=== PATIENT | female | born 1985 | race Caucasian/White ===

== ENCOUNTER 2017-10-18 15:16 | Inpatient (IN) | payer BC ==
[2017-10-18] MEDS ORDERED: Water For Irrigation,Sterile 1,000 ML Container IRR PRN (15:33)
[2017-10-18] MEDS ORDERED: Sodium Chloride 0.9% 2.5 ML Syringe FLUSH PRN (15:33)
[2017-10-18] MEDS ORDERED: Butorphanol 1 MG/ML SDV IVPUSH PRN (15:33)
[2017-10-18] MEDS ORDERED: Sodium Chloride 0.9% 10 ML Syringe FLUSH PRN (15:33)
[2017-10-18] MEDS ORDERED: Methylergonovine 0.2 MG/1 ML Amp IM PRN (15:33)
[2017-10-18] MEDS ORDERED: Nalbuphine 10 MG/1 ML Vial IVPUSH PRN (15:33)
[2017-10-18] MEDS ORDERED: Lidocaine 1% 50 ML MDV INJECT PRN (15:33)
[2017-10-18] MEDS ORDERED: Misoprostol 200 MCG Tab PO PRN (15:33)
[2017-10-18] MEDS ORDERED: Terbutaline 1 MG/ML SDV SUBCUT PRN (15:33)
[2017-10-18] MEDS ORDERED: Carboprost Tromethamine 250 MCG/1 ML Amp IM PRN (15:33)
[2017-10-18] MEDS ORDERED: Oxytocin/0.9 % Sodium Chloride 30 UNIT/500 ML BAG IV SCH ×2 (15:45)
[2017-10-18] MEDS ORDERED: Misoprostol 25 MCG (1/4 of 100 MCG) Tab VAG SCH (16:00)
[2017-10-18] MEDS: Lactated Ringers 1,000 ML IV SCH (16:38)
[2017-10-18] MEDS ORDERED: Misoprostol 25 MCG (1/4 of 100 MCG) Tab VAG PRN (22:00)
[2017-10-19] MEDS: Lactated Ringers 1,000 ML IV SCH ×5 (08:35→16:27)
--- NOTE | 2017-10-19 13:21 | PCM.PREANE ---
Preanesthetic Assessment - Anesthesia/Transfusion/Family Hx Anesthesia History: Prior Anesthesia Without Reaction Transfusion History: No Prior Transfusion(s) - Review of Systems General: No Symptoms Pulmonary: No Symptoms Cardiovascular: No Symptoms Gastrointestinal: No Symptoms Neurological: No Symptoms Other: Reports: None - Physical Assessment Height: 5 ft 2 in Weight: 92.533 kg ASA Class: 2 Mental Status: Alert & Oriented x3 Airway Class: Mallampati = 2 Dentition: Reports: Normal Dentition Thyro-Mental Finger Breadths: 3 Mouth Opening Finger Breadths: 3 ROM/Head Extension: Full Lungs: Clear to Auscultation, Normal Respiratory Effort Cardiovascular: Regular Rate, Regular Rhythm - Lab Values: Laboratory Last Values WBC 9.40 K/uL (4.0-11.0) 10/18/17 16:14 RBC 3.91 M/uL (4.30-5.90) L 10/18/17 16:14 Hgb 11.5 g/dL (12.0-16.0) L 10/18/17 16:14 Hct 34.6 % (36.0-46.0) L 10/18/17 16:14 MCV 88.5 fL (80.0-98.0) 10/18/17 16:14 MCH 29.4 pg (27.0-32.0) 10/18/17 16:14 MCHC 33.2 g/dL (31.0-37.0) 10/18/17 16:14 RDW Std Deviation 46.7 fl (28.0-62.0) 10/18/17 16:14 RDW Coeff of Vamsi 15 % (11.0-15.0) 10/18/17 16:14 Plt Count 176 K/uL (150-400) 10/18/17 16:14 MPV 11.20 fL (7.40-12.00) 10/18/17 16:14 Nucleated RBC % 0.0 /100WBC 10/18/17 16:14 Nucleated RBCs # 0 K/uL 10/18/17 16:14 Blood Type O POSITIVE 10/18/17 16:14 Antibody Screen NEGATIVE 10/18/17 16:14 - Allergies Allergies/Adverse Reactions: Allergies Allergy/AdvReac Type Severity Reaction Status Date / Time sulfamethoxazole Allergy Rash Verified 10/18/17 15:32 [From Bactrim] trimethoprim [From Bactrim] Allergy Rash Verified 10/18/17 15:32 - Acknowledgements Anesthesia Type Planned: Epidural Pt an Appropriate Candidate for the Planned Anesthesia: Yes Alternatives and Risks of Anesthesia Discussed w Pt/Guardian: Yes Pt/Guardian Understands and Agrees with Anesthesia Plan: Yes PreAnesthesia Questionnaire HEENT History: Reports: None Cardiovascular History: Reports: None Respiratory History: Reports: None Gastrointestinal History: Reports: GERD Genitourinary History: Reports: None PRIVACY DIRECTOR History: Reports: : 1 Para: 0 LMP (Approximate): Musculoskeletal History: Reports: Other (See Below) Other Musculoskeletal History: Hx of cleidocranial dysostosis Neurological History: Reports: None Psychiatric History: Reports: None Endocrine/Metabolic History: Reports: Obesity/BMI 30+ Hematologic History: Reports: None Immunologic History: Reports: None Oncologic (Cancer) History: Reports: None Dermatologic History: Reports: None - Past Surgical History Head Surgeries/Procedures: Reports: None HEENT Surgical History: Reports: Adenoidectomy, Oral Surgery, Tonsillectomy GI Surgical History: Reports: Appendectomy Female Surgical History: Reports: LEEP - SUBSTANCE USE Smoking Status *Q: Never Smoker Recreational Drug Use History: No - HOME MEDS Home Medications: Home Meds PNV95/Ferrous Fumarate/FA [ Tablet] 10/18/17 [History] - CURRENT (IN HOUSE) MEDS Current Meds: Current Medications Butorphanol Tartrate (Stadol) 1 mg IVPUSH Q1H PRN PRN Reason: Pain Carboprost Tromethamine (Hemabate Ds) 250 mcg IM ASDIRECTED PRN PRN Reason: Post Hemorrhage Lactated Ringer's (Ringers, Lactated) 1,000 mls @ 150 mls/hr IV ASDIRECTED MAG[facility]IE Last Admin: 10/19/17 13:17 Dose: 999 mls/hr Oxytocin/Sodium Chloride (Oxytocin 30 Unit/500 Ml-Ns) 30 unit in 500 mls @ 999 mls/hr IV TITRATE [facility] Oxytocin/Sodium Chloride (Oxytocin 30 Unit/500 Ml-Ns) 30 unit in 500 mls @ 2 mls/hr IV TITRATE [facility]; 2 MUNITS/MIN PRN Reason: Protocol Last Titration: 10/19/17 12:21 Dose: 14 munits/min, 14 mls/hr Lidocaine HCl (Xylocaine 1%) 50 ml INJECT .ONCE PRN PRN Reason: Laceration repair Methylergonovine Maleate (Methergine) 0.2 mg IM ASDIRECTED PRN PRN Reason: Post Hemorrhage Misoprostol (Cytotec) 200 mcg PO .ONCE PRN PRN Reason: Post Hemorrhage Misoprostol (Cytotec) 25 mcg VAG .ONCE [facility] Last Admin: 10/18/17 16:38 Dose: 25 mcg Misoprostol (Cytotec) 25 mcg VAG Q6H PRN PRN Reason: Cervical Ripening Nalbuphine HCl (Nubain) 10 mg IVPUSH Q1H PRN PRN Reason: Pain (severe 7-10) Sodium Chloride (Saline Flush) 10 ml FLUSH ASDIRECTED PRN PRN Reason: Keep Vein Open Sodium Chloride (Saline Flush) 2.5 ml FLUSH ASDIRECTED PRN PRN Reason: Keep Vein Open Sterile Water (Sterile Water For Irrigation) 1,000 ml IRR ASDIRECTED PRN PRN Reason: delivery Terbutaline Sulfate (Brethine) 0.25 mg SUBCUT ASDIRECTED PRN PRN Reason: Tacysystole
[2017-10-19] MEDS ORDERED: fentaNYL 100 MCG/2 ML SDV ONE (13:26)
[2017-10-19] MEDS ORDERED: Ropivacaine HCl/PF 100 ML ONE (13:26)
[2017-10-19] MEDS ORDERED: Lidocaine 2% 5 ML SDV ONE (13:42)
[2017-10-19] MEDS ORDERED: ceFAZolin 2 GM in Premix Bag 1 BAG IV ONE (22:00)
[2017-10-19] MEDS ORDERED: Lactated Ringers 1,000 ML IV SCH ×2 (22:00→23:15)
[2017-10-19] MEDS ORDERED: Citric Acid/Sodium Citrate Solution 30 ML Cup PO SCH (22:00)
[2017-10-19] MEDS ORDERED: Oxytocin/0.9 % Sodium Chloride 30 UNIT/500 ML BAG IV SCH (22:00)
[2017-10-19] MEDS ORDERED: Sodium Chloride 0.9% 2.5 ML Syringe FLUSH PRN (22:00)
[2017-10-19] MEDS ORDERED: Sodium Chloride 0.9% 10 ML Syringe FLUSH PRN (22:00)
[2017-10-19] MEDS ORDERED: Bupivacaine 0.5% 10 ML SDV ONE (22:05)
[2017-10-19] MEDS ORDERED: Citric Acid/Sodium Citrate Solution 30 ML Cup ONE (22:07)
[2017-10-19] MEDS ORDERED: Oxytocin 10 Units/1 ML SDV ONE (22:21)
[2017-10-19] MEDS ORDERED: Ondansetron 4 MG/2 ML SDV ONE (22:21)
[2017-10-19] MEDS ORDERED: ceFAZolin 1 GM Vial ONE (22:22)
[2017-10-19] MEDS ORDERED: Sodium Chloride 0.9% 20 ML ONE (22:22)
[2017-10-19] MEDS ORDERED: fentaNYL 100 MCG/2 ML SDV IVPUSH PRN (22:27)
[2017-10-19] MEDS ORDERED: Nalbuphine 10 MG/1 ML Vial IVPUSH PRN (22:27)
[2017-10-19] MEDS ORDERED: Phenylephrine/Normal Saline 100 MCG/ML 10 ML Syringe ONE (22:51)
[2017-10-19] MEDS ORDERED: Metoclopramide 10 MG/2 ML SDV ONE (22:53)
[2017-10-19] MEDS ORDERED: Morphine PF 10 MG/10 ML SDV ONE (23:12)
[2017-10-19] MEDS ORDERED: Simethicone 80 MG Tab.Chew PO PRN (23:14)
[2017-10-19] MEDS ORDERED: Ondansetron 4 MG/2 ML SDV IVPUSH PRN (23:14)
[2017-10-19] MEDS ORDERED: Aluminum Hydroxide/Magnesium Hydroxide/Simethicone Susp 30 ML Cup PO PRN (23:14)
[2017-10-19] MEDS ORDERED: Lanolin 100% Cream 7 GM Tube TOP PRN (23:14)
[2017-10-19] MEDS ORDERED: Acetaminophen/oxyCODONE 325-5 MG Tab PO PRN (23:14)
[2017-10-19] MEDS ORDERED: Bisacodyl 10 MG Supp RECTAL PRN (23:14)
[2017-10-19] MEDS ORDERED: diphenhydrAMINE 50 MG/ML SDV IVPUSH PRN (23:14)
--- NOTE | 2017-10-19 23:23 | PCM.POSTAN ---
POST ANESTHESIA ASSESSMENT - MENTAL STATUS Mental Status: Alert, Oriented - VITAL SIGNS Pulse Rate: 110 SaO2: 100 Resp Rate: 16 - RESPIRATORY Respiratory Status: Respiratory Rate WNL, Airway Patent, O2 Saturation Stable - CARDIOVASCULAR CV Status: Pulse Rate WNL, Blood Pressure Stable - GASTROINTESTINAL GI Status: No Symptoms - PAIN Pain Score: 0 - POST OP HYDRATION Hydration Status: Adequate & Stable
--- NOTE | 2017-10-19 23:28 | PCM.OPNOTE ---
- General Post-Op/Procedure Note Date of Surgery/Procedure: 10/19/17 Operative Procedure(s): Primary LTCS Findings: Viable female APGARs 9, 9 weight 3270 gm. Intact placenta with 3V cord. normal appearing pelvis . Pre Op Diagnosis: 39/6 week IUP. Arrest of dilation. Persistent category II FHTs. Polyhydramnios Post-Op Diagnosis: Same Anesthesia Technique: Epidural Primary Surgeon: Gavi Obrien Fluid Replacement, Intraop: 1,200 EBL in mLs: 600 Complications: none known Condition: Good Free Text/Narrative:: Dictation [id number]
[2017-10-19] MEDS ORDERED: Meperidine PF 25 MG/ML Syringe IVPUSH ONE (23:35)
[2017-10-20] MEDS: Ketorolac 30 MG/ML SDV IVPUSH SCH ×4 (05:30→23:09)
[2017-10-20] MEDS: Docusate Sodium 100 MG Cap PO SCH ×2 (09:08→20:27)
[2017-10-20] MEDS: Acetaminophen/oxyCODONE 325-5 MG Tab PO PRN ×3 (10:04→20:27)
--- NOTE | 2017-10-20 10:32 | PCM.PNPP ---
- General Info Date of Service: 10/20/17 Subjective Update: Doing well overall, pain is controlled. Slept some last night. Functional Status: Reports: Pain Controlled, Tolerating Diet - Review of Systems General: Denies: Fever, Weakness Pulmonary: Denies: Shortness of Breath Cardiovascular: Denies: Chest Pain, Palpitations, Lightheadedness Gastrointestinal: Denies: Abdominal Pain, Nausea, Vomiting Genitourinary: Denies: Flank Pain Psychiatric: Reports: No Symptoms - General Info Date of Service: 10/20/17 - Patient Data Vital Signs - Most Recent: Last Vital Signs Temp 36.9 C 10/20/17 07:51 Pulse 102 H 10/20/17 10:00 Resp 17 10/20/17 10:00 BP 117/76 10/20/17 07:51 Pulse Ox 100 10/20/17 10:00 Weight - Most Recent: 92.533 kg I&O - Last 24 Hours: Intake & Output 10/19/17 10/20/17 10/20/17 22:59 06:59 14:59 Intake Total 3550 700 Output Total 30 835 450 Balance -30 6775 250 Lab Results - Last 24 Hours: Laboratory Results - last 24 hr 10/20/17 Range/Units 04:54 Hgb 10.1 L (12.0-16.0) g/dL Hct 30.7 L (36.0-46.0) % Med Orders - Current: Current Medications Al Hydroxide/Mg Hydroxide (Mag-Al Plus) 30 ml PO Q8H PRN PRN Reason: Heartburn Bisacodyl (Dulcolax) 10 mg RECTAL .ONCE PRN PRN Reason: Constipation Carboprost Tromethamine (Hemabate Ds) 250 mcg IM ASDIRECTED PRN PRN Reason: Post Hemorrhage Citric Acid/Sodium Citrate (Bicitra Solution) 30 ml PO .ONCE MAGALIE Diphenhydramine HCl (Benadryl) 25 mg IVPUSH Q6H PRN PRN Reason: Itching or Nausea Docusate Sodium (Colace) 100 mg PO BID [facility] Last Admin: 10/20/17 09:08 Dose: 100 mg Emollient Ointment (Lansinoh Hpa) 0 gm TOP ASDIRECTED PRN PRN Reason: Sore Nipples Fentanyl (Sublimaze) 50 mcg IVPUSH Q5M PRN PRN Reason: Pain (severe 7-10) Stop: 10/20/17 22:27 Lactated Ringer's (Ringers, Lactated) 1,000 mls @ 150 mls/hr IV ASDIRECTED [facility] Last Admin: 10/19/17 16:27 Dose: 150 mls/hr Oxytocin/Sodium Chloride (Oxytocin 30 Unit/500 Ml-Ns) 30 unit in 500 mls @ 999 mls/hr IV TITRATE [facility] Oxytocin/Sodium Chloride (Oxytocin 30 Unit/500 Ml-Ns) 30 unit in 500 mls @ 2 mls/hr IV TITRATE [facility]; 2 MUNITS/MIN PRN Reason: Protocol Last Titration: 10/19/17 20:43 Dose: 12 munits/min, 12 mls/hr Oxytocin/Sodium Chloride (Oxytocin 30 Unit/500 Ml-Ns) 30 unit in 500 mls @ 250 mls/hr IV TITRATE [facility] Lactated Ringer's (Ringers, Lactated) 1,000 mls @ 500 mls/hr IV .BOLUS [facility] Lactated Ringer's (Ringers, Lactated) 1,000 mls @ 125 mls/hr IV ASDIRECTED [facility] Last Admin: 10/20/17 03:01 Dose: 125 mls/hr Ibuprofen (Motrin) 800 mg PO Q8H PRN PRN Reason: mild pain or fever Ketorolac Tromethamine (Toradol) 30 mg IVPUSH Q6H [facility] Stop: 10/20/17 23:01 Last Admin: 10/20/17 05:30 Dose: 30 mg Methylergonovine Maleate (Methergine) 0.2 mg IM ASDIRECTED PRN PRN Reason: Post Hemorrhage Misoprostol (Cytotec) 200 mcg PO .ONCE PRN PRN Reason: Post Hemorrhage Nalbuphine HCl (Nubain) 10 mg IVPUSH Q1H PRN PRN Reason: Pain (severe 7-10) Nalbuphine HCl (Nubain) 2.5 mg IVPUSH Q3H PRN PRN Reason: Pruritis Stop: 10/20/17 22:28 Ondansetron HCl (Zofran) 4 mg IVPUSH Q4H PRN PRN Reason: Nausea/Vomiting Oxycodone/Acetaminophen (Percocet 325-5 Mg) 1 tab PO Q4H PRN PRN Reason: Pain (moderate 4-6) Last Admin: 10/20/17 10:04 Dose: 1 tab Oxycodone/Acetaminophen (Percocet 325-5 Mg) 2 tab PO Q4H PRN PRN Reason: Pain (moderate 4-6) Simethicone (Simethicone) 80 mg PO Q4H PRN PRN Reason: Gas Sodium Chloride (Saline Flush) 10 ml FLUSH ASDIRECTED PRN PRN Reason: Keep Vein Open Sodium Chloride (Saline Flush) 2.5 ml FLUSH ASDIRECTED PRN PRN Reason: Keep Vein Open Discontinued Medications Bupivacaine HCl (Sensorcaine-Mpf 0.5%) Confirm Administered Dose 20 ml .ROUTE .STK-MED ONE Stop: 10/19/17 22:06 Butorphanol Tartrate (Stadol) 1 mg IVPUSH Q1H PRN PRN Reason: Pain Cefazolin Sodium (Ancef) Confirm Administered Dose 2 gm .ROUTE .STK-MED ONE Stop: 10/19/17 22:23 Citric Acid/Sodium Citrate (Bicitra Solution) Confirm Administered Dose 30 ml .ROUTE .STK-MED ONE Stop: 10/19/17 22:08 Last Admin: 10/19/17 22:15 Dose: 30 ml Fentanyl (Sublimaze) Confirm Administered Dose 100 mcg .ROUTE .STK-MED ONE Stop: 10/19/17 13:27 Ropivacaine (Naropin 0.2%) Confirm Administered Dose 100 mls @ as directed .ROUTE .STK-MED ONE Stop: 10/19/17 13:27 Cefazolin Sodium/Dextrose 2 gm (/ Premix) 50 mls @ 100 mls/hr IV ONETIME ONE Stop: 10/19/17 22:29 Sodium Chloride (Normal Saline) Confirm Administered Dose 20 mls @ as directed .ROUTE .STK-MED ONE Stop: 10/19/17 22:23 Lidocaine (Xylocaine-Mpf 2%) Confirm Administered Dose 5 ml .ROUTE .STK-MED ONE Stop: 10/19/17 13:43 Last Admin: 10/19/17 12:15 Dose: 5 ml Lidocaine HCl (Xylocaine 1%) 50 ml INJECT .ONCE PRN PRN Reason: Laceration repair Meperidine HCl (Demerol) 25 mg IVPUSH ONETIME ONE Stop: 10/19/17 23:36 Metoclopramide HCl (Reglan) Confirm Administered Dose 10 mg .ROUTE .STK-MED ONE Stop: 10/19/17 22:54 Misoprostol (Cytotec) 25 mcg VAG .ONCE [facility] Last Admin: 10/18/17 16:38 Dose: 25 mcg Misoprostol (Cytotec) 25 mcg VAG Q6H PRN PRN Reason: Cervical Ripening Morphine Sulfate (Duramorph Pf) Confirm Administered Dose 10 mg .ROUTE .STK-MED ONE Stop: 10/19/17 23:13 Ondansetron HCl (Zofran) Confirm Administered Dose 4 mg .ROUTE .STK-MED ONE Stop: 10/19/17 22:22 Oxytocin (Pitocin) Confirm Administered Dose 20 unit .ROUTE .STK-MED ONE Stop: 10/19/17 22:22 Phenylephrine HCl (Phenylephrine In Ns 100 Mcg/Ml) Confirm Administered Dose 1 mg .ROUTE .STK-MED ONE Stop: 10/19/17 22:52 Sodium Chloride (Saline Flush) 10 ml FLUSH ASDIRECTED PRN PRN Reason: Keep Vein Open Sodium Chloride (Saline Flush) 2.5 ml FLUSH ASDIRECTED PRN PRN Reason: Keep Vein Open Sterile Water (Sterile Water For Irrigation) 1,000 ml IRR ASDIRECTED PRN PRN Reason: delivery Terbutaline Sulfate (Brethine) 0.25 mg SUBCUT ASDIRECTED PRN PRN Reason: Tacysystole - Infant Interaction Support Person: - Recovery Exam Fundal Tone: Firm Fundal Level: At Umbilicus Fundal Placement: Midline Lochia Amount: Scant Lochia Color: Rubra/Red Perineum Description: Intact, Minimal Bruising/Swelling Episiotomy/Laceration: None Bladder Status: Indwelling Catheter in Place Urinary Elimination: Indwelling Catheter - Exam General: Alert, Oriented Lungs: Normal Respiratory Effort Cardiovascular: Regular Rate, Regular Rhythm GI/Abdominal Exam: Soft, No Distention Extremities: Pedal Edema (trace) Skin: Warm, Dry Wound/Incisions: Dressing Dry and Intact Psy/Mental Status: Alert - Problem List & Annotations (1) delivery, delivered, current hospitalization SNOMED Code(s): 689522434 Code(s): O82 - ENCOUNTER FOR DELIVERY WITHOUT INDICATION Status: Acute Current Visit: Yes - Problem List Review Problem List Initiated/Reviewed/Updated: Yes - My Orders Last 24 Hours: My Active Orders 10/19/17 22:00 Citric Acid/Sodium Citrate [Bicitra Solution] 30 ml PO .ONCE Lactated Ringers [Ringers, Lactated] 1,000 ml IV .BOLUS Oxytocin/0.9 % Sodium Chloride [Oxytocin 30 Unit/500 ML-NS] 30 unit in 500 ml IV TITRATE Sodium Chloride 0.9% [Saline Flush] 10 ml FLUSH ASDIRECTED PRN Sodium Chloride 0.9% [Saline Flush] 2.5 ml FLUSH ASDIRECTED PRN Resuscitation Status Routine 10/19/17 22:01 Patient Status [ADT] Routine Non Stress Test [RC] PER UNIT ROUTINE Up ad Cierra [RC] ASDIRECTED Vital Signs [RC] PER UNIT ROUTINE Peripheral IV Insertion Adult [OM.PC] Routine 10/19/17 22:02 Notify Provider Vital Signs [RC] PRN 10/19/17 23:14 Patient Status [ADT] Routine Ambulate [RC] PER UNIT ROUTINE Antiembolic Devices [RC] PER UNIT ROUTINE Communication Order [RC] PER UNIT ROUTINE Communication Order [RC] PER UNIT ROUTINE Communication Order [RC] Per Unit Routine May Shower [RC] ASDIRECTED Notify Provider Intake and Out [RC] ASDIRECTED Notify Provider Vital Signs [RC] ASDIRECTED RT Incentive Spirometry [RC] Q2HWA Acetaminophen/oxyCODONE [Percocet 325-5 MG] 1 tab PO Q4H PRN Acetaminophen/oxyCODONE [Percocet 325-5 MG] 2 tab PO Q4H PRN Alum Hydrox/Mag Hydrox/Simeth [Mag-Al Plus] 30 ml PO Q8H PRN Bisacodyl [Dulcolax] 10 mg RECTAL .ONCE PRN Lanolin [Lansinoh HPA] See Dose Instructions TOP ASDIRECTED PRN Ondansetron [Zofran] 4 mg IVPUSH Q4H PRN Simethicone 80 mg PO Q4H PRN diphenhydrAMINE [Benadryl] 25 mg IVPUSH Q6H PRN Abdominal Binder [OM.PC] Routine Assess Lochia [WOMSER] Per Unit Routine Assess Uterine Involution [WOMSER] Per Unit Routine Breast Pump [WOMSER] Per Unit Routine Heat Therapy [OM.PC] Routine Ice Therapy [OM.PC] Routine Peripheral IV Discontinue [OM.PC] Routine Sequential Compression Device [OM.PC] Per Unit Routine 10/19/17 23:15 Lactated Ringers [Ringers, Lactated] 1,000 ml IV ASDIRECTED 10/19/17 Dinner Regular Diet [DIET] 10/20/17 05:00 Ketorolac [Toradol] 30 mg IVPUSH Q6H 10/20/17 09:00 Docusate Sodium [Colace] 100 mg PO BID 10/21/17 05:00 Ibuprofen [Motrin] 800 mg PO Q8H PRN - Assessment Assessment:: POD 1 status post Primary LTCS - Plan Plan:: Continue postoperative cares--ambulate today, remove diez. Work with .
--- NOTE | 2017-10-20 15:02 | OR ---
SURGEON: Gavi Obrien M.D. DATE OF PROCEDURE: 10/19/2017 PREOPERATIVE DIAGNOSES: 1. 39 and 6 weeks intrauterine . 2. Arrest of dilation. 3. Persistent category II heart tones. 4. Polyhydramnios. POSTOPERATIVE DIAGNOSES: 1. 39 and 6 weeks intrauterine . 2. Arrest of dilation. 3. Persistent category II heart tones. 4. Polyhydramnios. PROCEDURE: Primary low-transverse section. ESTIMATED BLOOD LOSS: 600 mL. ANESTHESIA: Epidural. COMPLICATIONS: None known. FINDINGS: Viable female. scores 9 at 1 minute, 9 at 5 minute. Weight is 3270 g. Delivery with intact placenta, three-vessel cord. Normal-appearing pelvis. DISPOSITION: The patient to PACU and to nursery. INDICATIONS: Grace is a 32-year-old, G1, P0 at 39 and 6 weeks' gestational age. Presented for induction of labor due to polyhydramnios. PROCEDURE IN DETAIL: The patient was initiated on Cytotec ripening with a fully mechanical balloon dilation. The patient responded to this with the balloon extruding the following day. The patient was found to be 4 cm; therefore, the Pitocin was initiated. I assumed care on the morning of 10/19/2017. At that time, she was on Pitocin. She was not uncomfortable with contractions. Category I heart tones with the heart tones in the 130s to 140s. The patient underwent amniotomy. Clear fluid was returned. She became increasingly uncomfortable thereafter. Underwent regional anesthesia from the epidural, became more comfortable. The following afternoon, she was found to be 4-5 cm, 70% effaced, -2 station. The patient progressed to 5 cm thereafter and then made no further cervical dilation. An IUPC/FSE was placed as the patient began having some intermittent variables after the epidural. The IUPC helped titrate the Pitocin for adequate pattern once the heart tones resolved to a category I. Despite efforts with titrating Pitocin to an adequate pattern, the patient continued to make no further progress and, in the later evening hours, began having more variable decelerations and a change in the baseline to the 150s to 160s. Given these findings, I have discussed options with the patient, and she would like to proceed with delivery. Risks of the procedure have been discussed with her including infection, bleeding, possible trauma to surrounding bowel, bladder, ureter, and in the case of excessive blood loss, need for blood transfusion, and in rare lifesaving circumstances, need for hysterectomy, risk of anesthesia, risk of thromboembolic event have been discussed. The patient voiced understanding and preoperative consent was obtained. Anesthesia, systems lead, and OR crew were notified. The patient was taken to the operating room, where she underwent a bolus of her epidural, was placed in dorsal supine position with leftward tilt. SCDs to lower extremities. Kraft to gravity. Received Ancef prophylactically. Was prepped and draped in the usual sterile fashion and a time-out was performed. Anesthesia was tested and found to be adequate. A Pfannenstiel skin incision was now carried down to the level of the rectus fascia, which was incised in midline and lateralized on either side sharply and bluntly. The superior aspect of fascia was tented upward, dissected sharply and bluntly away from underlying muscle. In the similar aspect, performed the inferior aspect of fascia. Rectus muscles were in the midline as well as peritoneum was entered, and rectus muscles and peritoneum were lateralized bluntly. Uterine position and position gently palpated. Self-retaining retractor now gently placed. Uterovesical reflection was visualized. The bladder flap was created sharply and bluntly. Low transverse hysterotomy was performed. Uterine cavity was entered with blunt end of the scalpel. Clear fluid was returned. The hysterotomy was lateralized bluntly. The head was flexed delivered from the pelvis. The fundal pressure was applied. Head was delivered followed by anterior shoulder, posterior shoulder, and main body without difficulty. There was nuchal cord x1 present, this reduced manually. Infant's oropharynx and nares were bulb suctioned. Cord clamped x2 and cut. Infant was handed off to attending physician Dr. Adams. Cord arterial, cord venous, cord blood sampling was obtained. The placenta was now delivered. Uterine cavity was cleared of all clot and debris. The hysterotomy was repaired using 0 Vicryl in continuous running locked fashion followed by re-imbricating layer. The posterior aspect of the uterus inspected, no defects or hematomas found be forming. The regions were well irrigated and suction dried. The uterus returned to the abdominal cavity. Colonic gutters were cleared of all clot and debris, well irrigated, and suction dried. The hysterotomy had an area of oozing along the midline, this was repaired with a [id number] suture. Hemostasis thereafter evident. The self-retaining retractor now gently removed. Bladder blade was placed. Hysterotomy once again inspected and found hemostatic. The rectus muscles were now reapproximated using 0 Vicryl in inverted mattress suture technique. Anterior aspect of muscle and posterior aspect of fascia were closely inspected and any oozing were cauterized. The rectus fascia was reapproximated using 0 Vicryl in continuous running fashion beginning laterally and tied in the midline. Subcutaneous tissues were well irrigated and suction dried, and any areas of oozing were cauterized. The skin edges were reapproximated using 3-0 Vicryl on a Rock needle in a subcuticular fashion followed by a re-imbrication with 1/2-inch Steri-Strips and Mastisol. Sponge, instrument, and needle counts were correct x2. The patient has tolerated the procedure well overall. She will go to PACU in stable condition. Infant to nursery. Uterus remained firm. MAURILIO / OLIVIER /[id number]
--- NOTE | 2017-10-20 18:34 | PCM48HPAN ---
Post Anesthesia Note - EVALUATION WITHIN 48HRS OF ANESTHETIC Vital Signs in Normal Range: Yes Patient Participated in Evaluation: Yes Respiratory Function Stable: Yes Airway Patent: Yes Cardiovascular Function Stable: Yes Hydration Status Stable: Yes Pain Control Satisfactory: Yes Nausea and Vomiting Control Satisfactory: Yes Mental Status Recovered: Yes
[2017-10-21] MEDS: Docusate Sodium 100 MG Cap PO SCH ×2 (08:36→21:31)
[2017-10-21] MEDS: Acetaminophen/oxyCODONE 325-5 MG Tab PO PRN ×4 (08:39→21:31)
[2017-10-21] MEDS: Ibuprofen 800 MG Tab PO PRN ×2 (08:40→17:02)
--- NOTE | 2017-10-21 10:20 | PCM.PNPP ---
- General Info Date of Service: 10/21/17 Subjective Update: Patient is doing well overall-- ambulating halls, voiding, lochia is dissipating. Pain is controlled with oral pain meds. She is working with ; baby's bilirubin is elevated today. Functional Status: Reports: Pain Controlled, Tolerating Diet, Ambulating, Urinating - Review of Systems General: Denies: Fever, Weakness Pulmonary: Denies: Shortness of Breath Cardiovascular: Denies: Chest Pain, Palpitations, Lightheadedness Gastrointestinal: Reports: Flatus. Denies: Nausea, Vomiting Genitourinary: Denies: Flank Pain Psychiatric: Reports: No Symptoms - General Info Date of Service: 10/21/17 - Patient Data Vital Signs - Most Recent: Last Vital Signs Temp 37.4 C 10/21/17 08:00 Pulse 94 10/21/17 08:00 Resp 17 10/21/17 08:00 BP 123/81 10/21/17 08:00 Pulse Ox 97 10/21/17 08:00 Weight - Most Recent: 92.533 kg I&O - Last 24 Hours: Intake & Output 10/20/17 10/21/17 10/21/17 22:59 06:59 14:59 Output Total 3050 750 Balance -3050 -750 Med Orders - Current: Current Medications Al Hydroxide/Mg Hydroxide (Mag-Al Plus) 30 ml PO Q8H PRN PRN Reason: Heartburn Bisacodyl (Dulcolax) 10 mg RECTAL .ONCE PRN PRN Reason: Constipation Carboprost Tromethamine (Hemabate Ds) 250 mcg IM ASDIRECTED PRN PRN Reason: Post Hemorrhage Citric Acid/Sodium Citrate (Bicitra Solution) 30 ml PO .ONCE [facility] Diphenhydramine HCl (Benadryl) 25 mg IVPUSH Q6H PRN PRN Reason: Itching or Nausea Docusate Sodium (Colace) 100 mg PO BID [facility] Last Admin: 10/21/17 08:36 Dose: 100 mg Emollient Ointment (Lansinoh Hpa) 0 gm TOP ASDIRECTED PRN PRN Reason: Sore Nipples Lactated Ringer's (Ringers, Lactated) 1,000 mls @ 150 mls/hr IV ASDIRECTED [facility] Last Admin: 10/19/17 16:27 Dose: 150 mls/hr Oxytocin/Sodium Chloride (Oxytocin 30 Unit/500 Ml-Ns) 30 unit in 500 mls @ 999 mls/hr IV TITRATE [facility] Oxytocin/Sodium Chloride (Oxytocin 30 Unit/500 Ml-Ns) 30 unit in 500 mls @ 2 mls/hr IV TITRATE [facility]; 2 MUNITS/MIN PRN Reason: Protocol Last Titration: 10/19/17 20:43 Dose: 12 munits/min, 12 mls/hr Oxytocin/Sodium Chloride (Oxytocin 30 Unit/500 Ml-Ns) 30 unit in 500 mls @ 250 mls/hr IV TITRATE [facility] Lactated Ringer's (Ringers, Lactated) 1,000 mls @ 500 mls/hr IV .BOLUS MAG[facility] Lactated Ringer's (Ringers, Lactated) 1,000 mls @ 125 mls/hr IV ASDIRECTED [facility] Last Admin: 10/20/17 03:01 Dose: 125 mls/hr Ibuprofen (Motrin) 800 mg PO Q8H PRN PRN Reason: mild pain or fever Last Admin: 10/21/17 08:40 Dose: 800 mg Methylergonovine Maleate (Methergine) 0.2 mg IM ASDIRECTED PRN PRN Reason: Post Hemorrhage Misoprostol (Cytotec) 200 mcg PO .ONCE PRN PRN Reason: Post Hemorrhage Nalbuphine HCl (Nubain) 10 mg IVPUSH Q1H PRN PRN Reason: Pain (severe 7-10) Ondansetron HCl (Zofran) 4 mg IVPUSH Q4H PRN PRN Reason: Nausea/Vomiting Oxycodone/Acetaminophen (Percocet 325-5 Mg) 1 tab PO Q4H PRN PRN Reason: Pain (moderate 4-6) Last Admin: 10/21/17 08:39 Dose: 1 tab Oxycodone/Acetaminophen (Percocet 325-5 Mg) 2 tab PO Q4H PRN PRN Reason: Pain (moderate 4-6) Simethicone (Simethicone) 80 mg PO Q4H PRN PRN Reason: Gas Sodium Chloride (Saline Flush) 10 ml FLUSH ASDIRECTED PRN PRN Reason: Keep Vein Open Sodium Chloride (Saline Flush) 2.5 ml FLUSH ASDIRECTED PRN PRN Reason: Keep Vein Open Discontinued Medications Bupivacaine HCl (Sensorcaine-Mpf 0.5%) Confirm Administered Dose 20 ml .ROUTE .STK-MED ONE Stop: 10/19/17 22:06 Butorphanol Tartrate (Stadol) 1 mg IVPUSH Q1H PRN PRN Reason: Pain Cefazolin Sodium (Ancef) Confirm Administered Dose 2 gm .ROUTE .STK-MED ONE Stop: 10/19/17 22:23 Citric Acid/Sodium Citrate (Bicitra Solution) Confirm Administered Dose 30 ml .ROUTE .STK-MED ONE Stop: 10/19/17 22:08 Last Admin: 10/19/17 22:15 Dose: 30 ml Fentanyl (Sublimaze) Confirm Administered Dose 100 mcg .ROUTE .STK-MED ONE Stop: 10/19/17 13:27 Fentanyl (Sublimaze) 50 mcg IVPUSH Q5M PRN PRN Reason: Pain (severe 7-10) Stop: 10/20/17 22:27 Ropivacaine (Naropin 0.2%) Confirm Administered Dose 100 mls @ as directed .ROUTE .STK-MED ONE Stop: 10/19/17 13:27 Cefazolin Sodium/Dextrose 2 gm (/ Premix) 50 mls @ 100 mls/hr IV ONETIME ONE Stop: 10/19/17 22:29 Sodium Chloride (Normal Saline) Confirm Administered Dose 20 mls @ as directed .ROUTE .STK-MED ONE Stop: 10/19/17 22:23 Ketorolac Tromethamine (Toradol) 30 mg IVPUSH Q6H MAGAL[facility] Stop: 10/20/17 23:01 Last Admin: 10/20/17 23:09 Dose: 30 mg Lidocaine (Xylocaine-Mpf 2%) Confirm Administered Dose 5 ml .ROUTE .STK-MED ONE Stop: 10/19/17 13:43 Last Admin: 10/19/17 12:15 Dose: 5 ml Lidocaine HCl (Xylocaine 1%) 50 ml INJECT .ONCE PRN PRN Reason: Laceration repair Meperidine HCl (Demerol) 25 mg IVPUSH ONETIME ONE Stop: 10/19/17 23:36 Metoclopramide HCl (Reglan) Confirm Administered Dose 10 mg .ROUTE .STK-MED ONE Stop: 10/19/17 22:54 Misoprostol (Cytotec) 25 mcg VAG .ONCE MAGALIE Last Admin: 10/18/17 16:38 Dose: 25 mcg Misoprostol (Cytotec) 25 mcg VAG Q6H PRN PRN Reason: Cervical Ripening Morphine Sulfate (Duramorph Pf) Confirm Administered Dose 10 mg .ROUTE .STK-MED ONE Stop: 10/19/17 23:13 Nalbuphine HCl (Nubain) 2.5 mg IVPUSH Q3H PRN PRN Reason: Pruritis Stop: 10/20/17 22:28 Ondansetron HCl (Zofran) Confirm Administered Dose 4 mg .ROUTE .STK-MED ONE Stop: 10/19/17 22:22 Oxytocin (Pitocin) Confirm Administered Dose 20 unit .ROUTE .STK-MED ONE Stop: 10/19/17 22:22 Phenylephrine HCl (Phenylephrine In Ns 100 Mcg/Ml) Confirm Administered Dose 1 mg .ROUTE .STK-MED ONE Stop: 10/19/17 22:52 Sodium Chloride (Saline Flush) 10 ml FLUSH ASDIRECTED PRN PRN Reason: Keep Vein Open Sodium Chloride (Saline Flush) 2.5 ml FLUSH ASDIRECTED PRN PRN Reason: Keep Vein Open Sterile Water (Sterile Water For Irrigation) 1,000 ml IRR ASDIRECTED PRN PRN Reason: delivery Terbutaline Sulfate (Brethine) 0.25 mg SUBCUT ASDIRECTED PRN PRN Reason: Tacysystole - Infant Interaction Disposition, : [place] to Nursery Interaction: Holding Feeding: Continues to Breastfeed Support Person: - Recovery Exam Fundal Tone: Firm Fundal Level: At Umbilicus Fundal Placement: Midline Lochia Amount: Scant Lochia Color: Rubra/Red Perineum Description: Intact, Minimal Bruising/Swelling Episiotomy/Laceration: None Bladder Status: Voiding Urinary Elimination: Voided - Exam General: Alert, Oriented Lungs: Normal Respiratory Effort Cardiovascular: Regular Rate, Regular Rhythm GI/Abdominal Exam: Normal Bowel Sounds, Soft Extremities: Normal Capillary Refill, Pedal Edema (trace) Skin: Warm, Dry Wound/Incisions: Healing Well, No Drainage Psy/Mental Status: Alert - Problem List & Annotations (1) delivery, delivered, current hospitalization SNOMED Code(s): 183488608 Code(s): O82 - ENCOUNTER FOR DELIVERY WITHOUT INDICATION Status: Acute Current Visit: Yes - Problem List Review Problem List Initiated/Reviewed/Updated: Yes - My Orders Last 24 Hours: My Active Orders 10/21/17 05:00 Ibuprofen [Motrin] 800 mg PO Q8H PRN - Assessment Assessment:: POD 2 status post Primary LTCS - Plan Plan:: Continue postoperative cares--ambulate today, may shower. Continue to work with breasfeeding. Anticipate discharge tomorrow.
[2017-10-22] MEDS: Ibuprofen 800 MG Tab PO PRN (02:10)
[2017-10-22] MEDS: Acetaminophen/oxyCODONE 325-5 MG Tab PO PRN ×2 (02:11→06:58)
--- NOTE | 2017-10-22 07:54 | PCM.PNPP ---
- General Info Date of Service: 10/22/17 Functional Status: Reports: Pain Controlled, Tolerating Diet, Ambulating, Urinating - Review of Systems General: Denies: Fever, Weakness Pulmonary: Denies: Shortness of Breath Cardiovascular: Denies: Chest Pain, Palpitations, Lightheadedness Gastrointestinal: Reports: Abdominal Pain (incisional controlled with oral pain meds), Flatus. Denies: Nausea, Vomiting Genitourinary: Denies: Flank Pain Neurological: Reports: No Symptoms Psychiatric: Reports: No Symptoms - General Info Date of Service: 10/22/17 - Patient Data Vital Signs - Most Recent: Last Vital Signs Temp 36.7 C 10/22/17 02:00 Pulse 96 10/22/17 02:00 Resp 16 10/22/17 02:00 BP 121/76 10/22/17 02:00 Pulse Ox 99 10/21/17 16:37 Weight - Most Recent: 92.533 kg Med Orders - Current: Current Medications Al Hydroxide/Mg Hydroxide (Mag-Al Plus) 30 ml PO Q8H PRN PRN Reason: Heartburn Bisacodyl (Dulcolax) 10 mg RECTAL .ONCE PRN PRN Reason: Constipation Carboprost Tromethamine (Hemabate Ds) 250 mcg IM ASDIRECTED PRN PRN Reason: Post Hemorrhage Citric Acid/Sodium Citrate (Bicitra Solution) 30 ml PO .ONCE [facility] Diphenhydramine HCl (Benadryl) 25 mg IVPUSH Q6H PRN PRN Reason: Itching or Nausea Docusate Sodium (Colace) 100 mg PO BID [facility] Last Admin: 10/21/17 21:31 Dose: 100 mg Emollient Ointment (Lansinoh Hpa) 0 gm TOP ASDIRECTED PRN PRN Reason: Sore Nipples Lactated Ringer's (Ringers, Lactated) 1,000 mls @ 150 mls/hr IV ASDIRECTED [facility] Last Admin: 10/19/17 16:27 Dose: 150 mls/hr Oxytocin/Sodium Chloride (Oxytocin 30 Unit/500 Ml-Ns) 30 unit in 500 mls @ 999 mls/hr IV TITRATE [facility] Oxytocin/Sodium Chloride (Oxytocin 30 Unit/500 Ml-Ns) 30 unit in 500 mls @ 2 mls/hr IV TITRATE MAGAL[facility]; 2 MUNITS/MIN PRN Reason: Protocol Last Titration: 10/19/17 20:43 Dose: 12 munits/min, 12 mls/hr Oxytocin/Sodium Chloride (Oxytocin 30 Unit/500 Ml-Ns) 30 unit in 500 mls @ 250 mls/hr IV TITRATE [facility] Lactated Ringer's (Ringers, Lactated) 1,000 mls @ 500 mls/hr IV .BOLUS MAGALIE Lactated Ringer's (Ringers, Lactated) 1,000 mls @ 125 mls/hr IV ASDIRECTED [facility] Last Admin: 10/20/17 03:01 Dose: 125 mls/hr Ibuprofen (Motrin) 800 mg PO Q8H PRN PRN Reason: mild pain or fever Last Admin: 10/22/17 02:10 Dose: 800 mg Methylergonovine Maleate (Methergine) 0.2 mg IM ASDIRECTED PRN PRN Reason: Post Hemorrhage Misoprostol (Cytotec) 200 mcg PO .ONCE PRN PRN Reason: Post Hemorrhage Nalbuphine HCl (Nubain) 10 mg IVPUSH Q1H PRN PRN Reason: Pain (severe 7-10) Ondansetron HCl (Zofran) 4 mg IVPUSH Q4H PRN PRN Reason: Nausea/Vomiting Oxycodone/Acetaminophen (Percocet 325-5 Mg) 1 tab PO Q4H PRN PRN Reason: Pain (moderate 4-6) Last Admin: 10/22/17 06:58 Dose: 1 tab Oxycodone/Acetaminophen (Percocet 325-5 Mg) 2 tab PO Q4H PRN PRN Reason: Pain (moderate 4-6) Simethicone (Simethicone) 80 mg PO Q4H PRN PRN Reason: Gas Sodium Chloride (Saline Flush) 10 ml FLUSH ASDIRECTED PRN PRN Reason: Keep Vein Open Sodium Chloride (Saline Flush) 2.5 ml FLUSH ASDIRECTED PRN PRN Reason: Keep Vein Open Discontinued Medications Bupivacaine HCl (Sensorcaine-Mpf 0.5%) Confirm Administered Dose 20 ml .ROUTE .STK-MED ONE Stop: 10/19/17 22:06 Butorphanol Tartrate (Stadol) 1 mg IVPUSH Q1H PRN PRN Reason: Pain Cefazolin Sodium (Ancef) Confirm Administered Dose 2 gm .ROUTE .STK-MED ONE Stop: 10/19/17 22:23 Citric Acid/Sodium Citrate (Bicitra Solution) Confirm Administered Dose 30 ml .ROUTE .STK-MED ONE Stop: 10/19/17 22:08 Last Admin: 10/19/17 22:15 Dose: 30 ml Fentanyl (Sublimaze) Confirm Administered Dose 100 mcg .ROUTE .STK-MED ONE Stop: 10/19/17 13:27 Fentanyl (Sublimaze) 50 mcg IVPUSH Q5M PRN PRN Reason: Pain (severe 7-10) Stop: 10/20/17 22:27 Ropivacaine (Naropin 0.2%) Confirm Administered Dose 100 mls @ as directed .ROUTE .STK-MED ONE Stop: 10/19/17 13:27 Cefazolin Sodium/Dextrose 2 gm (/ Premix) 50 mls @ 100 mls/hr IV ONETIME ONE Stop: 10/19/17 22:29 Sodium Chloride (Normal Saline) Confirm Administered Dose 20 mls @ as directed .ROUTE .STK-MED ONE Stop: 10/19/17 22:23 Ketorolac Tromethamine (Toradol) 30 mg IVPUSH Q6H MAGALIE Stop: 10/20/17 23:01 Last Admin: 10/20/17 23:09 Dose: 30 mg Lidocaine (Xylocaine-Mpf 2%) Confirm Administered Dose 5 ml .ROUTE .STK-MED ONE Stop: 10/19/17 13:43 Last Admin: 10/19/17 12:15 Dose: 5 ml Lidocaine HCl (Xylocaine 1%) 50 ml INJECT .ONCE PRN PRN Reason: Laceration repair Meperidine HCl (Demerol) 25 mg IVPUSH ONETIME ONE Stop: 10/19/17 23:36 Metoclopramide HCl (Reglan) Confirm Administered Dose 10 mg .ROUTE .STK-MED ONE Stop: 10/19/17 22:54 Misoprostol (Cytotec) 25 mcg VAG .ONCE MAGALIE Last Admin: 10/18/17 16:38 Dose: 25 mcg Misoprostol (Cytotec) 25 mcg VAG Q6H PRN PRN Reason: Cervical Ripening Morphine Sulfate (Duramorph Pf) Confirm Administered Dose 10 mg .ROUTE .STK-MED ONE Stop: 10/19/17 23:13 Nalbuphine HCl (Nubain) 2.5 mg IVPUSH Q3H PRN PRN Reason: Pruritis Stop: 10/20/17 22:28 Ondansetron HCl (Zofran) Confirm Administered Dose 4 mg .ROUTE .STK-MED ONE Stop: 10/19/17 22:22 Oxytocin (Pitocin) Confirm Administered Dose 20 unit .ROUTE .STK-MED ONE Stop: 10/19/17 22:22 Phenylephrine HCl (Phenylephrine In Ns 100 Mcg/Ml) Confirm Administered Dose 1 mg .ROUTE .STK-MED ONE Stop: 10/19/17 22:52 Sodium Chloride (Saline Flush) 10 ml FLUSH ASDIRECTED PRN PRN Reason: Keep Vein Open Sodium Chloride (Saline Flush) 2.5 ml FLUSH ASDIRECTED PRN PRN Reason: Keep Vein Open Sterile Water (Sterile Water For Irrigation) 1,000 ml IRR ASDIRECTED PRN PRN Reason: delivery Terbutaline Sulfate (Brethine) 0.25 mg SUBCUT ASDIRECTED PRN PRN Reason: Tacysystole - Infant Interaction Infant Disposition, : [place] in Room with Family Infant Interaction: Holding Feeding: Continues to Breastfeed Support Person: - Recovery Exam Fundal Tone: Firm Fundal Level: At Umbilicus Fundal Placement: Midline Lochia Amount: Scant Lochia Color: Rubra/Red Episiotomy/Laceration: None Bladder Status: Voiding Urinary Elimination: Voided - Exam General: Alert, Oriented Lungs: Normal Respiratory Effort Cardiovascular: Regular Rate, Regular Rhythm GI/Abdominal Exam: Soft, Non-Tender Extremities: Pedal Edema (trace). No: Rm's Sign Skin: Warm, Dry, Intact Wound/Incisions: Healing Well, No Drainage. No: Erythema Psy/Mental Status: Alert, Normal Affect - Problem List & Annotations (1) delivery, delivered, current hospitalization SNOMED Code(s): 581953671 Code(s): O82 - ENCOUNTER FOR DELIVERY WITHOUT INDICATION Status: Acute Current Visit: Yes - Problem List Review Problem List Initiated/Reviewed/Updated: Yes - My Orders Last 24 Hours: My Active Orders 10/22/17 07:48 Ready for Discharge [RC] PER UNIT ROUTINE - Assessment Assessment:: POD 3 status post Primary LTCS - Plan Plan:: Ready to go home today. Discharge instructions reviewed. Infection and bleeding warnings reviewed. Follow up at [facility] 2 and 6 weeks. Discharge to home today.
[2017-10-22] MEDS: Docusate Sodium 100 MG Cap PO SCH (10:01)
== END 2017-10-22 11:20 | disposition home or self-care (01) | DRG 540 ==
LOC: MW.OBCHECK 15:16 → MW.OB 15:19 → MW.OBCHECK 15:30 → UNDOADMOB 15:33 → MW.OB 15:33 → OBSVTOIN 22:01 → INTOOBSV 22:01 → MERGE 22:01 → OBSVTOIN 10-19 22:36 → MW.OB 10-19 22:36 → UNDODISIN 10-22 11:20
PROVIDERS: ADMIT Obstetrics & Gynecology; ATTEND Obstetrics & Gynecology
PROC: 10D00Z1 Extraction of Products of Conception, Low, Open Approach (ICD-10-PCS; principal; 2017-10-18)
PROC: 3E0P7VZ Introduction of Hormone into Female Reproductive, Via Natural or Artificial Opening (ICD-10-PCS; 2017-10-18)
PROC: 10H07YZ Insertion of Other Device into Products of Conception, Via Natural or Artificial Opening (ICD-10-PCS; 2017-10-18)
DX: O40.3XX0 Polyhydramnios, third trimester, not applicable or unspecified (principal); O62.1 Secondary uterine inertia; O76 Abnormality in fetal heart rate and rhythm complicating labor and delivery; Q74.0 Other congenital malformations of upper limb(s), including shoulder girdle; Z3A.39 39 weeks gestation of pregnancy; Z37.0 Single live birth
CPT/HCPCS: 01967; 01968; 36415; 59025; 59200; 85014; 85018; 85027; 86850; 86900; 86901; A9270-GY; J0690; J1885; J2270; J2405; J2590; J2765; J7120

== ENCOUNTER 2019-06-07 22:14 | Emergency (ER) | payer BC, MEDICAID ==
--- NOTE | 2019-06-07 22:26 | EDM.PDOC ---
ED HPI GENERAL MEDICAL PROBLEM - General Chief Complaint: ENT Problem Stated Complaint: EAR INFECTION Time Seen by Provider: 06/07/19 22:15 Source of Information: Reports: Patient History Limitations: Reports: No Limitations - History of Present Illness INITIAL COMMENTS - FREE TEXT/NARRATIVE: HISTORY AND PHYSICAL: History of present illness: Patient is a 33-year-old female who presents to the emergency room today with complaints of right ear pain since this morning. Patient does have a history of recurrent ear infections. States she has been using Tylenol and ibuprofen and it has not relieved any of her pain. Patient denies any fever, chills, headache , change in vision, syncope or near syncope. Denies any chest pain, back pain, shortness of breath or cough. Denies any abdominal pain, nausea, vomiting, diarrhea, constipation or dysuria. Has not noted any blood in urine or stool. Patient has been eating and drinking appropriately. Review of systems: As per history of present illness and below otherwise all systems reviewed and negative. Past medical history: As per history of present illness and as reviewed below otherwise noncontributory. Surgical history: As per history of present illness and as reviewed below otherwise noncontributory. Social history: See social history for further information Family history: As per history of present illness and as reviewed below otherwise noncontributory. Physical exam: General: Well-developed and well-nourished 33-year-old female. Alert and oriented. Nontoxic appearing and in no acute distress. HEENT: Atraumatic, normocephalic, pupils equal and reactive bilaterally, negative for conjunctival pallor or scleral icterus, mucous membranes moist, right TMs erythematous and bulging without perforation left TM normal, throat clear, neck supple, nontender, trachea midline. No drooling or trismus noted. No meningeal signs. No hot potato voice noted. Lungs: Clear to auscultation, breath sounds equal bilaterally, chest nontender. Heart: S1S2, regular rate and rhythm without overt murmur Abdomen: Soft, nondistended, nontender. Skin: Intact, warm, dry. No lesions or rashes noted. Extremities: Atraumatic, moves all extremities per self without difficulty or deficits. Neurovascular unremarkable. Neuro: Awake, alert, oriented. Cranial nerves II through XII unremarkable. Cerebellum unremarkable. Motor and sensory unremarkable throughout. Exam nonfocal. Notes: Medication education was reviewed. Pharmacy is currently closed. We'll give her one tablet while here. Supportive care measures were reviewed and discussed. Voices understanding and is agreeable to plan of care. Denies any further questions or concerns at this time. Diagnostics: None Therapeutics: Augmentin, [place] Prescription: Impression: Otitis Media, Right Plan: 1. Take the medications as prescribed 2. Tylenol and/or ibuprofen as needed for pain management 3. Follow-up with primary care or research chemist. Return to the ED as needed and as discussed. Definitive disposition and diagnosis as appropriate pending reevaluation and review of above. Onset: Today right ear Pain Score (Numeric/FACES): 5 - Related Data Allergies Allergy/AdvReac Type Severity Reaction Status Date / Time sulfamethoxazole Allergy Rash Verified 06/07/19 22:22 [From Bactrim] trimethoprim [From Bactrim] Allergy Rash Verified 06/07/19 22:22 Home Meds: Home Meds PNV95/Ferrous Fumarate/FA [ Tablet] 10/18/17 [History] Amoxicillin/Clavulanate K [Augmentin 875-125 MG] 1 tab PO BID 10 Days #20 tablet 06/07/19 [Rx] Cholecalciferol (Vitamin D3) [Vitamin D] 5,000 unit PO DAILY 06/07/19 [History] DULoxetine [Cymbalta] 20 mg PO DAILY 06/07/19 [History] Ovalo-3 Fatty Acids [Ovalo-3] 100 mg PO DAILY 06/07/19 [History] traMADol [Ultram] 50 mg PO Q4H PRN #10 tab 06/07/19 [Rx] Past Medical History HEENT History: Reports: None Cardiovascular History: Reports: None Respiratory History: Reports: None Gastrointestinal History: Reports: GERD Genitourinary History: Reports: None 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: Musculoskeletal History: Reports: Other (See Below) Other Musculoskeletal History: Hx of cleidocranial dysostosis Neurological History: Reports: None Psychiatric History: Reports: None Endocrine/Metabolic History: Reports: Obesity/BMI 30+ Hematologic History: Reports: None Immunologic History: Reports: None Oncologic (Cancer) History: Reports: None Dermatologic History: Reports: None - Past Surgical History Head Surgeries/Procedures: Reports: None HEENT Surgical History: Reports: Adenoidectomy, Oral Surgery, Tonsillectomy GI Surgical History: Reports: Appendectomy Female Surgical History: Reports: LEEP Social & Family History - Family History HEENT: Reports: Impaired Vision Cardiac: Reports: High Cholesterol, Hypertension : Reports: Renal Disease/Insufficiency OBGYN: Reports: Neurological: Reports: Alzheimers Disease Psychiatric: Reports: Anxiety, Depression Endocrine/Metabolic: Reports: Other (See Below) Other Endocrine/Metabolic Family History: Pre-diabetic father; thyroid problems but unsure of type Oncologic: Reports: Other (See Below) Other Oncologic Family History: hx of cancer in family but unsure of what type - Caffeine Use Caffeine Use: Reports: Tea ED ROS ENT - Review of Systems Review Of Systems: ROS reveals no pertinent complaints other than HPI. ED EXAM, ENT - Physical Exam Exam: See Below (See dictation) Course - Vital Signs Last Recorded V/S: Last Vital Signs Temp 97.5 F 06/07/19 22:22 Pulse 83 06/07/19 22:22 Resp 18 06/07/19 22:22 BP 105/60 06/07/19 22:22 Pulse Ox 98 06/07/19 22:22 - Orders/Labs/Meds Meds: Medications Discontinued Medications Generic Name Dose Route Start Last Admin Trade Name Freq PRN Reason Stop Dose Admin Hydrocodone Bitart/Acetaminophen 1 tab 06/07/19 22:27 [place] 325-5 Mg PO 06/07/19 22:28 ONETIME ONE Amoxicillin/Clavulanate Potassium 1 tab 06/07/19 22:27 Augmentin 875 Mg/125 Mg PO 06/07/19 22:28 ONETIME ONE Departure - Departure Time of Disposition: 22:25 Disposition: Home, Self-Care 01 Clinical Impression: Otitis media Qualifiers: Otitis media type: suppurative Chronicity: acute Laterality: right Recurrence: recurrent Spontaneous tympanic membrane rupture: without spontaneous rupture Qualified Code(s): H66.004 - Acute suppurative otitis media without spontaneous rupture of ear drum, recurrent, right ear - Discharge Information Prescriptions: Amoxicillin/Clavulanate K [Augmentin 875-125 MG] 1 tab PO BID 10 Days #20 tablet traMADol [Ultram] 50 mg PO Q4H PRN #10 tab PRN Reason: Pain Instructions: Otitis Media, Adult, [id number] Referrals: PCP,None [Primary Care Provider] - Forms: ED Department Discharge Additional Instructions: The following information is given to patients seen in the emergency department who are being discharged to home. This information is to outline your options for follow-up care. We provide all patients seen in our emergency department with a follow-up referral. The need for follow-up, as well as the timing and circumstances, are variable depending upon the specifics of your emergency department visit. If you don't have a primary care physician on staff, we will provide you with a referral. We always advise you to contact your personal physician following an emergency department visit to inform them of the circumstance of the visit and for follow-up with them and/or the need for any referrals to a consulting specialist. The emergency department will also refer you to a specialist when appropriate. This referral assures that you have the opportunity for follow-up care with a specialist. All of these measure are taken in an effort to provide you with optimal care, which includes your follow-up. Under all circumstances we always encourage you to contact your private physician who remains a resource for coordinating your care. When calling for follow-up care, please make the office aware that this follow-up is from your recent emergency room visit. If for any reason you are refused follow-up, please contact the [facility] Emergency Department at and asked to speak to the emergency department charge nurse. [facility] Primary Care [address] [place] [id number] [address] [address] 1. Take the medications as prescribed 2. Tylenol and/or ibuprofen as needed for pain management. Tramadol for pain, do not take it will driving her needing to be functioning outside the house. 3. Follow-up with primary care or research chemist. Return to the ED as needed and as discussed.
[2019-06-07] MEDS ORDERED: Acetaminophen/HYDROcodone 325-5 MG Tab PO ONE (22:27)
[2019-06-07] MEDS ORDERED: Amoxicillin/Clavulanate K 875-125 MG Tab PO ONE (22:27)
== END 2019-06-07 22:40 | disposition home or self-care (01) ==
LOC: MW.ED 22:14
DX: H66.004 Acute suppurative otitis media without spontaneous rupture of ear drum, recurrent, right ear (principal); K21.9 Gastro-esophageal reflux disease without esophagitis; E66.9 Obesity, unspecified; E78.00 Pure hypercholesterolemia, unspecified; Z88.2 Allergy status to sulfonamides; Z88.1 Allergy status to other antibiotic agents; Z79.899 Other long term (current) drug therapy; Z68.33 Body mass index [BMI] 33.0-33.9, adult
CPT/HCPCS: 99282; A9270; 99283

== ENCOUNTER 2020-05-28 11:27 | Emergency (ER) | payer MEDICAID ==
[2020-05-28] MEDS ORDERED: Tetracaine HCl/PF 0.5% 4 ML Bottle EYERT ONE (12:12)
--- NOTE | 2020-05-28 12:12 | EDM.PDOC ---
ED HPI GENERAL MEDICAL PROBLEM - General Chief Complaint: Eye Problems Stated Complaint: RT EYE Time Seen by Provider: 05/28/20 11:33 Source of Information: Reports: Patient History Limitations: Reports: No Limitations - History of Present Illness INITIAL COMMENTS - FREE TEXT/NARRATIVE: 34-year-old female woke up with right eye pain. She wears soft contact lenses and took them out last night before she went to bed. She woke up this morning feeling like there is foreign body in her right eye, pain and tearing. She tried flushing with saline with no relief. She denies any new blurry vision or changes to her vision with glasses on. Denies fever, chills, headache. ROS: A 10-point review of systems, other than pertinent positives and negatives as stated per HPI, is otherwise negative PHYSICAL EXAM General: AOx4, GCS = 15, mild distress HEENT: dry mucous membrane, right eye injected conjunctiva, PERRLA, EOMI, no exophthalmos, no obvious foreign body noted. Corneal abrasion to the right eye at 3 o'clock position, no Angelic sign. Neck: supple, no meningismus, no Kernig or Brudzinski Cardiac: S1S2 RRR Respiratory: CTAB, no crackles or rales, no wheezing Abdomen: Soft, nontender, no rebound or guarding, nondistended, no pulsatile mass. Back: nontender Musculoskeletal: NVI distally, no deformity Neuro: No focal deficits Onset: Today Right Eye Pain Score (Numeric/FACES): 4 - Related Data Allergies Allergy/AdvReac Type Severity Reaction Status Date / Time sulfamethoxazole Allergy Rash Verified 06/07/19 22:22 [From Bactrim] trimethoprim [From Bactrim] Allergy Rash Verified 06/07/19 22:22 Home Meds: Home Meds Pnv No.95/Ferrous Fum/Folic AC [ Tablet] 1 tab PO DAILY 10/18/17 [History] Cholecalciferol (Vitamin D3) [Vitamin D] 5,000 unit PO DAILY 06/07/19 [History] Sultana-3 Fatty Acids [Sultana-3] 100 mg PO DAILY 06/07/19 [History] Ciprofloxacin [Ciprofloxacin 0.3% Ophth Soln] 5 ml EYERT Q4H #1 bottle 05/28/20 [Rx] Past Medical History HEENT History: Reports: None Other HEENT History: recurrent ear infection Cardiovascular History: Reports: None Respiratory History: Reports: None Gastrointestinal History: Reports: GERD Genitourinary History: Reports: None [employer] History: Reports: Musculoskeletal History: Reports: Other (See Below) Other Musculoskeletal History: Hx of cleidocranial dysostosis Neurological History: Reports: None Psychiatric History: Reports: None Endocrine/Metabolic History: Reports: Obesity/BMI 30+ Hematologic History: Reports: None Immunologic History: Reports: None Oncologic (Cancer) History: Reports: None Dermatologic History: Reports: None - Infectious Disease History Infectious Disease History: Reports: None - Past Surgical History Head Surgeries/Procedures: Reports: None HEENT Surgical History: Reports: Adenoidectomy, Oral Surgery, Tonsillectomy GI Surgical History: Reports: Appendectomy Female Surgical History: Reports: LEEP Social & Family History - Family History HEENT: Reports: Impaired Vision Cardiac: Reports: High Cholesterol, Hypertension : Reports: Renal Disease/Insufficiency OBGYN: Reports: Neurological: Reports: Alzheimers Disease Psychiatric: Reports: Anxiety, Depression Endocrine/Metabolic: Reports: Other (See Below) Other Endocrine/Metabolic Family History: Pre-diabetic father; thyroid problems but unsure of type Oncologic: Reports: Other (See Below) Other Oncologic Family History: hx of cancer in family but unsure of what type - Caffeine Use Caffeine Use: Reports: Tea ED ROS GENERAL - Review of Systems Review Of Systems: Comprehensive ROS is negative, except as noted in HPI. ED EXAM GENERAL W FULL EYE - Physical Exam Exam: See Below (see dictation) Course - Vital Signs Last Recorded V/S: Last Vital Signs Temp 96.8 F L 05/28/20 14:07 Pulse 82 05/28/20 14:07 Resp 17 05/28/20 14:07 BP 114/73 05/28/20 14:07 Pulse Ox 100 05/28/20 14:07 - Orders/Labs/Meds Orders: Active Orders 24 hr Category Date Time Status Communication Order [RC] STAT Care 05/28/20 12:15 Active Meds: Medications Discontinued Medications Generic Name Dose Route Start Last Admin Trade Name Divya PRN Reason Stop Dose Admin Tetracaine HCl 1 ml 05/28/20 12:12 05/28/20 12:36 Tetracaine 0.5% Steri-Unit Angela EYERT 05/28/20 12:13 1 applic ASDIRECTED ONE Administration - Re-Assessments/Exams Free Text/Narrative Re-Assessment/Exam: 05/28/20 13:30 After treatments and a prolonged observation period in the ER, the patient improved clinically and is stable for discharge. I performed a repeat examination and the patient has not demonstrated any new abnormal findings. Patient exhibits normal vital signs and has exhibited a normal gait. I advised the patient to return to the ER for reevaluation if symptoms worsened, and to follow up with opthalmology 1 week. Patient go back to [place], [place] in 2 weeks. MEDICAL DECISION MAKING: I reviewed the patients past medical records, lab and radiographic findings. I discussed the case with the patient. My differential diagnosis included: Corneal foreign body, conjunctivitis, corneal abrasion. With lamp exam demonstrated a corneal abrasion around 3 o'clock position in her right eye with no Angelic sign, I do not suspect corneal trauma or perforation. She has no change in vision wearing glasses, her pupils were reactive to light and were symmetrical bilaterally, I do not suspect acute angle-closure glaucoma. Patient wears contact lens, she will be placed on antibiotic with outpatient ophthalmology follow-up within a week. Her tetanus is up-to-date. Departure - Departure Time of Disposition: 13:33 Disposition: Home, Self-Care 01 Condition: Good Clinical Impression: Corneal abrasion - Discharge Information *PRESCRIPTION DRUG MONITORING PROGRAM REVIEWED*: Not Applicable *COPY OF PRESCRIPTION DRUG MONITORING REPORT IN PATIENT RADHA: Not Applicable Prescriptions: Ciprofloxacin [Ciprofloxacin 0.3% Ophth Soln] 5 ml EYERT Q4H #1 bottle Instructions: Corneal Abrasion Referrals: [facility] [Outside] - 1 Week Forms: ED Department Discharge Additional Instructions: Please follow up with eye clinic within 1 week. The following information is given to patients seen in the emergency department who are being discharged to home. This information is to outline your options for follow-up care. We provide all patients seen in our emergency department with a follow-up referral. The need for follow-up, as well as the timing and circumstances, are variable depending upon the specifics of your emergency department visit. If you don't have a primary care physician on staff, we will provide you with a referral. We always advise you to contact your personal physician following an emergency department visit to inform them of the circumstance of the visit and for follow-up with them and/or the need for any referrals to a consulting specialist. The emergency department will also refer you to a specialist when appropriate. This referral assures that you have the opportunity for follow-up care with a specialist. All of these measure are taken in an effort to provide you with optimal care, which includes your follow-up. Under all circumstances we always encourage you to contact your private physician who remains a resource for coordinating your care. When calling for follow-up care, please make the office aware that this follow-up is from your recent emergency room visit. If for any reason you are refused follow-up, please contact the [facility] Emergency Department at and asked to speak to the emergency department charge nurse. If you do not have a primary care doctor, please follow up with the clinics below within 3-5 days. [facility] [address] [place] [id number] [facility] [address] [place] [id number] Sepsis Event Note (ED) - Focused Exam Vital Signs: Vital Signs Temp Pulse Resp BP Pulse Ox 05/28/20 14:07 96.8 F L 82 17 114/73 100 05/28/20 12:06 97.3 F 84 20 117/80 100 - My Orders Last 24 Hours: My Active Orders 05/28/20 12:15 Communication Order [RC] STAT - Assessment/Plan Last 24 Hours: My Active Orders 05/28/20 12:15 Communication Order [RC] STAT
== END 2020-05-28 14:07 | disposition home or self-care (01) ==
LOC: MW.ED 11:27
DX: S05.01XA Injury of conjunctiva and corneal abrasion without foreign body, right eye, initial encounter (principal); E66.9 Obesity, unspecified; Z68.37 Body mass index [BMI] 37.0-37.9, adult; Z88.2 Allergy status to sulfonamides; X58.XXXA Exposure to other specified factors, initial encounter
CPT/HCPCS: 99283